=== PATIENT | male | born 1935 | race Caucasian/White ===

== ENCOUNTER 2022-09-22 10:21 | Outpatient (CLI) | payer MEDICARE, OTHER, SELFPAY ==
[2022-09-22 12:41] LABS: Albumin* 4.4 g/dL (3.3-5.0); Chloride* 106 mmol/L (96-114); Potassium* 4.6 mmol/L (3.6-5.1); Sodium* 140 mmol/L (135-149)
[2022-09-22 12:43] LABS: Cholesterol* 116 mg/dL (90-199); Creatinine* 1.3 mg/dL (0.5-1.5); Estimated Glomerular Filt Rate 54 ml/min
[2022-09-22 12:44] LABS: Alanine Aminotransferase* 18 U/L (4-50); Alkaline Phosphatase* 87 U/L (40-150); Aspartate Amino Transferase* 26 U/L (12-35); Bilirubin Total* 0.5 mg/dL (0.1-1.5); Blood Urea Nitrogen* 24 mg/dL (7-30); Carbon Dioxide* 28 mmol/L (20-32); Glucose* 96 mg/dL (60-115); Total Protein* 7.3 g/dL (6.0-8.3); Triglycerides* 91 mg/dL (40-149)
[2022-09-22 12:45] LABS: Calcium* 9.4 mg/dL (8.4-10.6); HDL Cholesterol* 44 mg/dL (>=40); LDL Cholesterol Calculated 54 mg/dL (<100)
[2022-09-22 13:13] LABS: PSA Screen* 1.99 ng/mL (0.10-4.00)
== END 2022-09-22 10:22 | disposition home or self-care (01) ==
PROVIDERS: PCP Family Medicine; Visit Provider Family Medicine
DX: Z00.00 Encounter for general adult medical examination without abnormal findings (principal); E11.9 Type 2 diabetes mellitus without complications; E78.5 Hyperlipidemia, unspecified; I10 Essential (primary) hypertension; N18.9 Chronic kidney disease, unspecified; Z12.5 Encounter for screening for malignant neoplasm of prostate
CPT/HCPCS: 80053; 80061; 84153

== ENCOUNTER 2023-10-05 09:03 | Outpatient (CLI) | payer MEDICARE, OTHER, SELFPAY ==
--- OUTSIDE RECORDS SUMMARY | 2023-10-08 09:34 | XMS_ITS | Clinical Summary ---
Author Name Unknown Organization [employer] [facility] Address [place], [place] [address] Care Team Providers Care Assistant Site Manager Name Role Phone None Unavailable Unavailable Gabo Lopez MD Unavailable [phone] Sandra Robles Primary Care Provider Unavail able Allergies No known active allergies Medications Medication Sig Dispensed Refills Start Date End Date Status aspirin chewable 81 mg chewable tablet Take 1 tablet by mouth once daily. Hold aspirin for about a week- restart on about Thursday12/15/2016 30 tablet 12 12/15/2016 Active atorvastatin (LIPITOR) 10 mg tabletIndications:ASCV D (arteriosclerotic cardiovascular disease) Take 1 Tablet (10 mg) by mouth at bedtime. 90 Tablet 3 08/20/2023 Active metoprolol tartrate (LOPRESSOR) 50 mg tabletIndications:Josr nary artery disease due to lipid rich plaque Take 1 Tablet (50 mg) by mouth two times daily. 180 Tablet 3 08/20/2023 Active nitroglycerin (NITROSTAT) 0.4 mg sublingual tabletIndications:Josr nary artery disease due to lipid rich plaque Place 1 Tablet (0.4 mg) under the tongue every 5 minutes if needed for Chest Pain. 25 Tablet 3 08/20/2023 Active Active Problems Problem Noted Date Diagnosed Date GI bleed 12/06/2016 Advance care planning 12/06/2016 Overview: Patient has identified Health Care Agent(s): Yes Add Health Care Agents: No Patient has Advance Care Plan Documents (Health Care Directive, POLST): Yes Advance Care Plan Documents: Health Care Directive Patient has identified Specific Treatment Preferences: Yes Specific Treatment Preferences: a.) Code Status: CPR/Attempt Resuscitation Would not want left on if not a readily reversible condition Heidi Gan D.O. Pager [phone] 12/06/2016 5:42 AM Acute blood loss anemia 12/06/2016 HTN (hypertension) 05/28/2016 CAD (coronary artery disease ), s/p thrombectomy, PCI/Bare metal stent to proximal RCA 08/29/14 09/21/2014 Hyperlipemia 09/21/2014 Acute [place], inferior wall, initial episode of care 08/29/2014 Elevated troponin Resolved Problems Problem Noted Date Diagnosed Date Resolved Date Abnormal EKG 12/06/2016 12/12/2016 Overview: Possible stress induced ischemia acute blood loss Syncope 12/06/2016 12/12/2016 Overview: Acute blood loss Encounters Date Type Department Care Team Description 08/20/2023 4:00 PM PRIVATE BRANCH EXCHANGE OPERATOR Office Visit [facility] [address] [place] [address] Gabo Lopez MD Follow Up (Overdue Annual Follow-Up/) 08/20/2023 Travel 08/12/2023 9:10 AM PRIVATE BRANCH EXCHANGE OPERATOR Orders Only [facility] [address] [place] [address] Lab, [facility] 08/12/2023 Travel from Last 3 Months Immunizations Name Administration Dates Next Due AMB INFLUENZA IIV3 (AGE 65+ YRS) PF (Flu Clinic Only) 06/05/2017 Amb Influenza, Inact (High-dose) (Flu Clinic Onl y) 07/29/2016 Influenza Virus, Unspecified 06/28/2014 Family History Medical History Relation Name Comments Other Father Other Mother Relation Name Status Comments Father Mother Social History Tobacco Use Types Packs/Day Years Used Date Smoking Tobacco: Former Cigarettes Q uit: 08/14/2013 Cigars Smokeless Tobacco: Never Tobacco Cessation:Counseling Given: Yes Alcohol Use Standard Drinks/Week Comments Not Currently 0 (1 standard drink = 0.6 oz pur e alcohol) Few times a year Social Connections Answer Date Recorded Frequency of Communication with Friends and Fami ly Not on file 09/14/2021 Financial Resource Strain Answer Date R ecorded Difficulty of Paying Living Expenses Not on file 09/14/2021 Difficulty of Paying Living Expenses Not on file 09/14/2021 Sex and Gender Information Value Date Recorded Sex Assigned at Not on file Gender Identity Not on file Sexual Orientation Not on file Obstetrics History Last Filed Vital Signs Vital Sign Reading Time Taken Comments Blood Pressure 144/82 08/20/2023 1:28 PM PRIVATE BRANCH EXCHANGE OPERATOR Pulse 66 08/20/2023 1:28 PM PRIVATE BRANCH EXCHANGE OPERATOR Temperature 36.4 ??C (97.5 ??F) 06/16/2022 1:08 PM CD T Respiratory Rate 16 08/20/2023 1:28 PM PRIVATE BRANCH EXCHANGE OPERATOR Oxygen Saturation 99% 08/20/2023 1:28 PM PRIVATE BRANCH EXCHANGE OPERATOR Inhaled Oxygen Concentration - - Weight 79.3 kg (174 lb 12.8 oz) 08/20/2023 1:28 PM PRIVATE BRANCH EXCHANGE OPERATOR Height 172.7 cm (5' 8) 08/20/2023 1:28 PM PRIVATE BRANCH EXCHANGE OPERATOR Body Mass Index 26.58 08/20/2023 1:28 PM PRIVATE BRANCH EXCHANGE OPERATOR Plan of Treatment Health Maintenance Due Date Last Done Comments Tdap 1948 Tetanus booster 1957 Zoster (shingles) series for age 50+ (1 of 2) 1987 Medicare Wellness for age 65+ 2002 Pneumococcal series for age 65+ (1 of 1 - PCV) 2002 Depression screening for age 12+ 05/28/2017 05/28/20 16 Influenza for age 65+ 05/15/2023 06/05/2017 , 07/29/2016, 06/28/2014 BMI (ht and wt on same day) for age 18+ 08/20/2024 08/20/2023, 06/16/2022, 02/21/2021, Additional history exists COVID-19 vaccine series Completed 06/25/20 23, 01/13/2023, 08/14/2022, Additional history exists Procedures Procedure Name Priority Date/Time Associated Diagnosis Comments BASIC METABOLIC PANEL Routine 08/12/2023 8:59 AM PRIVATE BRANCH EXCHANGE OPERATOR ASCVD (arteriosclerotic cardiovascular disease) LIPID PANEL W REFLEX MEASURED LDL Routine 08/12/2023 8:59 AM PRIVATE BRANCH EXCHANGE OPERATOR ASCVD (arteriosclerotic cardiovascular disease) from Last 3 Months Results * LIPID PANEL W REFLEX MEASURED LDL (08/12/2023 8:59 AM PRIVATE BRANCH EXCHANGE OPERATOR) CHOLESTEROL,TOTAL 117 100 - 199 mg/dL 08/12/2023 5:24 PM PRIVATE BRANCH EXCHANGE OPERATOR [facility] Comment: Cholesterol, Total Reference Ranges Desirable <200 mg/dL Borderline 200-239 mg/dL High >=240 mg/dL TRIGLYCERIDES 126 <150 mg/dL 08/12/2023 5:24 PM PRIVATE BRANCH EXCHANGE OPERATOR [facility] HDL CHOLESTEROL 47 >40 mg/dL 5:24 PM PRIVATE BRANCH EXCHANGE OPERATOR [facility] NON-HDL CHOLESTEROL 70 <145 mg/dl 08/12/2023 5:24 PM PRIVATE BRANCH EXCHANGE OPERATOR [facility] CHOL/HDL RATIO 2.49 <4.50 08/12/2023 5:24 PM PRIVATE BRANCH EXCHANGE OPERATOR [facility] LDL CHOLESTEROL 45 <=130 mg/dL 08/12/2023 5:24 PM PRIVATE BRANCH EXCHANGE OPERATOR [facility] VLDL CHOLESTEROL 25 <=30 mg/dL 08/12/2023 5:24 PM PRIVATE BRANCH EXCHANGE OPERATOR [facility] PROVIDER ORDERED STATUS RANDOM 08/12/2023 5:24 PM PRIVATE BRANCH EXCHANGE OPERATOR [facility] Blood BLOOD SPECIMEN / Unknown Venipuncture / Unknown 08/12/2023 8:59 AM PRIVATE BRANCH EXCHANGE OPERATOR 08/12/2023 9:00 AM PRIVATE BRANCH EXCHANGE OPERATOR Gabo Lopez MD CHEMISTRY [facility] [address] [place] [address], * (ABNORMAL) BASIC METABOLIC PANEL (08/12/2023 8:59 AM PRIVATE BRANCH EXCHANGE OPERATOR) SODIUM 139 136 - 145 mmol/L 08/12/2023 5:24 PM PRIVATE BRANCH EXCHANGE OPERATOR [facility] POTASSIUM 4.3 3.5 - 5.1 mmol/L 08/12/2023 5:24 PM PRIVATE BRANCH EXCHANGE OPERATOR [facility] CHLORIDE 104 98 - 107 mmol/L 08/12/2023 5:24 PM PRIVATE BRANCH EXCHANGE OPERATOR [facility] CO2,TOTAL 24 22 - 29 mmol/L 08/12/2023 5:24 PM PRIVATE BRANCH EXCHANGE OPERATOR [facility] ANION GAP 11 5 - 18 08/12/2023 5:24 PM PRIVATE BRANCH EXCHANGE OPERATOR [facility] GLUCOSE 100(H) 70 - 99 mg/dL 08/12/2023 5:24 PM PRIVATE BRANCH EXCHANGE OPERATOR [facility] CALCIUM 9.6 8.8 - 10.2 mg/dL 08/12/2023 5:24 PM PRIVATE BRANCH EXCHANGE OPERATOR [facility] BUN 22 8 - 23 mg/dL 08/12/2023 5:24 PM PRIVATE BRANCH EXCHANGE OPERATOR [facility] CREATININE 1.45(H) 0.70 - 1.20 mg/dL 08/12/2023 5:24 PM PRIVATE BRANCH EXCHANGE OPERATOR [facility] BUN/CREAT RATIO 15 10 - 20 5:24 PM PRIVATE BRANCH EXCHANGE OPERATOR [facility] eGFR 47(L) >90 mL/min/1.7 3m2 08/12/2023 5:24 PM [facility] Comment:As of 2021, eG FR is calculated by the CKD-EPI creatinine equation without race adjustment. ??eGFR can be influenced by muscle mass, exercise, and diet. ??The reported eGFR is an estimation only and is only applicable if the renal function is stable. Blood BLOOD SPECIMEN / Unknown Venipuncture / Unknown 08/12/2023 8:59 AM PRIVATE BRANCH EXCHANGE OPERATOR 08/12/2023 9:00 AM PRIVATE BRANCH EXCHANGE OPERATOR Gabo Lopez MD CHEMISTRY [facility] [address] [place] [address], [place] from Last 3 Months Advance Directives Documents on File Type Date Recorded Patient Relationship Counselor Expl anation Healthcare Directive 12/15/2016 8:51 AM MICHAELA ROBLES, 01/29/2009 Latest Code Status on File Code Status Date Activated Date Inactivated Comments Full Code 12/08/2016 8:35 AM 12/08/2016 7:36 PM Code Status History Code Status Date Activated Date Inactivated Comments Full Code 12/06/2016 5:20 AM 12/08/2016 8:35 AM Full Code 08/29/2014 4:12 PM 08/31/2014 4:44 PM Care Teams Assistant Site Manager Relationship Specialty Start Date End Date Sandra Robles PCP - General 08/17/17 None . 09/21/14 [place] [id number] [place] [address] Consulting Physician Cardiovascular Disease 10/23/14
--- OUTSIDE RECORDS SUMMARY | 2023-10-08 09:34 | XMS_ITS | Continuity of Care Document ---
Author Name Unknown Organization [facility] Address [address] [address] [place] [address] Phone Care Team Providers Care Analytical Data Scientist Name Role Phone Ainsley Iraheta MD Unavailable Unavailable Procedures Procedure Date Colonoscopy Flex; Dx (sep Pro) 17 Moderate sedation, initial 15 minutes Ma Init Hosp-da E&m Mod Severity 7 Ugi Endo; Dx W/wo Collec Specm 17 Subsqt Hosp-da E&m Minr Compl 7 Advance Directives Directive Yes / No Effective Date File Name No Information Encounters Encounter Description Practice Location Reason(s) For Visit Diagnoses Date Provider Providers Copied on Encounter [facility], [address] [address], [place], [place], [id number], tel:[phone] [facility] No Information Myrtle Schmitz. [address] [place] [address], [id number], [place]. tel:[phone] [facility], [address] [address], [place], [place], [id number], [place] tel:[phone] [facility] No Information Myrtle Schmitz. [address] [place] [address], [id number], [place]. tel:[phone] Referring Provider: Remington Horton MD , [address], [address]. tel:[phone] Init Hosp-da E&m Mod Severity [facility], [address] [address], [place], [place], [id number], tel:[phone] [facility] No Information Med Castillo. [address] [facility], [place], [id number], [place]. tel:[phone] Referring Provider: Remington Bella, [address], [address]. tel:[phone] Family History Family Member Type Diagnosis Age At Onset No Information Payers Payer name Insurance type Covered democrat ID Authoriza tion(s) No Information Social History Type Description Quantity Date Captured Comments Sex Male Smoking Status No Information Chief Complaint And Reason For Visit No Information Reason For Referral Reason For Referral No Information History Of Present Illness Encounter Date Complaint History Of Prese nt Illness No Information Functional Status Date Functional Assessmen t No Information Instructions Date Instruction Additional Infor mation No Information Assessments Type Assessment Date No Information Patient Care Teams Name Effective Dates (start - stop) Status Members No Information
== END 2023-10-05 09:04 | disposition home or self-care (01) ==
LOC: NFLDREF 10-08 09:24
PROVIDERS: PCP Family Medicine; Referring Provider Family Medicine; Visit Provider Family Medicine
DX: E78.5 Hyperlipidemia, unspecified (principal); I10 Essential (primary) hypertension; N18.2 Chronic kidney disease, stage 2 (mild)
CPT/HCPCS: 80053; 80061

== ENCOUNTER 2024-10-11 09:15 | Outpatient (CLI) | payer MEDICARE, OTHER, SELFPAY | END 2024-10-11 09:16 | disposition home or self-care (01) | LOC: NFLDREF 10-17 02:03 | PROVIDERS: PCP Family Medicine; Referring Provider Family Medicine; Visit Provider Family Medicine | DX: E78.5 Hyperlipidemia, unspecified (principal); I10 Essential (primary) hypertension | CPT/HCPCS: 80053; 80061 ==